=== PATIENT | female | born 1970 | race Caucasian/White ===

== ENCOUNTER → 2022-02-27 | Outpatient (CLI) | payer OTHER | END | disposition home or self-care (01) | LOC: RAH 13:58 → EDUNIT# 14:00 | PROVIDERS: ATTEND Internal Medicine Cardiovascular Disease | DX: Z13.6 Encounter for screening for cardiovascular disorders (principal) | CPT/HCPCS: 75571 ==

== ENCOUNTER 2023-12-31 15:43 | Emergency (ER) | payer BC, OTHER ==
[~2023-12-31] VITALS: Ht 170.2 cm; Wt 86.2 kg
[2023-12-31 16:18] LABS: BASOPHILS # (AUTO) 0.09 K/uL (0.00-0.20); BASOPHILS % (AUTO) 0.8 % (0.0-5.0); EOSINOPHILS # (AUTO) 0.22 K/uL (0.00-0.70); EOSINOPHILS % (AUTO) 2.1 % (0.0-8.0); HEMATOCRIT 38.7 % (36-48); IMMATURE GRANULOCYTE ABSOLUTE 0.03 K/uL (0-1); LYMPHOCYTES # (AUTO) 2.3 K/uL (1.0-4.8); MEAN CORPUSCULAR HGB CONC 33.6 g/dL (32.0-36.0); MEAN CORPUSCULAR VOLUME 92.4 fL (79-99); MONOCYTES # (AUTO) 1.2 K/uL (0.1-1.0); MONOCYTES % (AUTO) 11.6 % (3.0-13.0); NEUTROPHILS # (AUTO) 6.9 K/uL (1.8-7.7); NEUTROPHILS % (AUTO) 64.2 % (40.0-77.0); PLATELET COUNT (AUTO) 281 K/uL (130-400); RED BLOOD CELL COUNT(AUTO) 4.19 MIL/uL (4.00-5.50); RED CELL DISTRIBUTION WIDTH 13.4 % (11.0-15.5); WHITE BLOOD COUNT (AUTO) 10.7 K/uL (4.8-10.8)
[2023-12-31 16:29] LABS: ADD UA MICROSCOPIC YES; APPEARANCE,URINE CLEAR (CLEAR); BILIRUBIN,URINE NEGATIVE (NEGATIVE); COLOR,URINE YELLOW (YELLOW); GLUCOSE, URINE (UA) NEGATIVE (NEGATIVE); KETONES,URINE 10 mg/dL (NEGATIVE); LEUKOCYTE ESTERASE ,URINE 75 Leu/uL (NEGATIVE); NITRATE,URINE NEGATIVE (NEGATIVE); OCCULT BLOOD,URINE NEGATIVE (NEGATIVE); PROTEIN,URINE 10 mg/dL (NEGATIVE)
[2023-12-31 16:30] LABS: CREATININE 1.5 mg/dL (0.5-1.0); POTASSIUM 3.5 mmol/L (3.5-5.1)
[2023-12-31 16:31] LABS: BACTERIA,URINE FEW /HPF (None Seen); MUCUS,URINE RARE LPF (None Seen); SQUAMOUS EPITHELIAL CELL,UR RARE /HPF (0-2)
[2023-12-31 16:35] LABS: ALBUMIN 3.5 g/dL (3.5-5.0); BILIRUBIN,TOTAL 0.4 mg/dL (0.2-1.0); TOTAL PROTEIN, SERUM 7.8 g/dL (6.0-8.3)
[2023-12-31] MEDS: KETOROLAC 15MG/ML VIAL (15MG/ML) IV ONE (17:01)
[2023-12-31] MEDS: CEFTRIAXONE 1G VIAL IVPB ONE (17:01)
[2023-12-31] MEDS: FAMOTIDINE 20MG VIAL IV ONE (17:01)
[2023-12-31] MEDS: ONDANSETRON 4MG INJ IVP ONE (17:01)
[2023-12-31] MEDS: MORPHINE 2 MG SYG IVP ONE (18:38)
[2023-12-31 19:10] VITALS: BP 123/65; PULSE 81; RESP 16; O2SAT 98
[2023-12-31] MEDS ORDERED: FAMO-136 PO (19:10)
[2023-12-31] MEDS ORDERED: ONDA-243 PO (19:10)
[2023-12-31] MEDS ORDERED: KETO10TA2 PO (19:10)
== END 2023-12-31 19:24 | disposition home or self-care (01) ==
LOC: EDH 15:43
DX: R10.11 Right upper quadrant pain (principal); I10 Essential (primary) hypertension; E03.9 Hypothyroidism, unspecified; Z88.8 Allergy status to other drugs, medicaments and biological substances; Z90.49 Acquired absence of other specified parts of digestive tract
CPT/HCPCS: 99284; 74176; 96365; 96375; 96366; 80053; 83690; 85025; 87086 ×2; 87186; 81001; 36415; 93005; J3490; J2270; J0696; J2405; J1885

== ENCOUNTER 2025-01-11 23:01 | Emergency (ER) | payer BC ==
[~2025-01-11] VITALS: Ht 170.2 cm; Wt 84.8 kg
[~2025-01-11 23:01] MED LIST: FAMO-136 PO; KETO10TA2 PO; ONDA-243 PO
[2025-01-11] MEDS: LIDOCAINE/PRILOCAINE CREAM 5GM TUBE TP ONE (23:44)
[2025-01-12] MEDS: LIDOCAINE 1%-EPI 1:100,000 20 ML VIAL IJ ONE (00:05)
[2025-01-12 00:28] VITALS: BP 143/80; PULSE 74; RESP 16; TEMP 98; O2SAT 98
--- NOTE | 2025-01-12 00:31 | NUR ---
LACERATION REPAIR TO UPPER LIP
[2025-01-12] MEDS ORDERED: AMOX1TAB16 PO (00:51)
--- NOTE | 2025-01-12 00:53 | ERN ---
General Chief Complaint: Animal Bite Stated Complaint: C/O DOG BITE TO UPPER LIP Time Seen by MD: 23:05 Source: patient History of Present Illness Initial Comments Patient suffered a bite to her right upper lip from her pet dog. She says her dog has been vaccinated twice for rabies. Allergies: Coded Allergies: Iodinated Contrast Media (Unverified Allergy, Unknown, 12/31/23) Home Meds Active Scripts Amoxicillin/Potassium Clav (Amox Tr-K Clv 875-125 mg Tab) 875 Mg-125 Mg Tablet, 1 EACH PO BID for 5 Days, #10 TAB 0 Refills Prov:BRIDGETTE MOSS MD 01/12/25 Ondansetron (Ondansetron Odt) 4 Mg Tab.rapdis, 4 MG PO BID for 7 Days, #14 TAB Prov:NICOLETTE NASH 12/31/23 Ketorolac Tromethamine (Ketorolac Tromethamine) 10 Mg Tablet, 10 MG PO BID for 5 Days, #10 TAB Prov:NICOLETTE NASH 12/31/23 Famotidine (Pepcid) 20 Mg Tablet, 20 MG PO BID for 7 Days, #14 TAB Prov:NICOLETTE NASH 12/31/23 Past Medical History Past Medical History: Hypertension, Hypothyroid Past Surgical History: Appendectomy, Tonsillectomy ROS [employer] Systems Physical Exam Head/Face Trauma: Yes Face Comment There is a laceration 2 cm through the front of the patient's right upper lip. It does not involve the philtrum. It is not through and through. It appears also to have lost some tissue. Please see the procedure note for repair. MDM Superficial laceration avulsion to the patient's right upper lip. I will close it with some simple interrupted sutures I will give her a tetanus shot and prescribe a short course of antibiotics. ED Course Orders Procedure Category Date Status Time Lidocaine 1%-Epi PHA 01/11/25 Complete 1:100,000 (Lidocaine 23:30 Laceration Tray Set CPOE 01/11/25 Transmitted Up (Er) 23:23 Tetanus,Diphtheria PHA 01/11/25 Complete Tox [Adult] (Diphther 23:30 Lidocaine/Prilocaine PHA 01/11/25 Complete (Emla) 23:30 Current Medications Medications (Trade) Dose Ordered Sig/Nader Route PRN Reason Start Time Stop Time Status Last Admin Dose Admin Lidocaine/ Epinephrine (Lidocaine 1%-Epi 1:100,000) 20 ml ONCE ONCE IJ 01/11/25 23:30 01/11/25 23:31 DC 01/12/25 00:05 Lidocaine/ Prilocaine (Emla) 1 appl ONCE ONCE TP 01/11/25 23:30 01/11/25 23:31 DC 01/11/25 23:44 Tetanus/ Diphtheria Toxoids Adsorbed (DiphthERIA-teTANUS TOXOID [ADULT]/ DECAVAC) 0.5 ml ONCE ONCE IM 01/11/25 23:30 01/11/25 23:31 DC 01/11/25 23:50 Vital Signs Date Time Temp Pulse Resp B/P (MAP) Pulse Ox O2 Delivery O2 Flow Rate FiO2 01/12/25 00:28 98.1 74 16 143/80 98 Room Air* 0 21 Laceration/Wound Repair Laceration/Wound Repair : Wound Location: face Wound Length (cm): 1 Wound's Depth, Shape: superficial, irregular Wound Explored: clean Betadine Prep?: No Anesthesia: 1% Lidocaine, 0.5% Sensorcaine Wound Debrided: minimal Wound Repaired With: sutures Suture Size/Type: 5:0, 4:0 Number of Sutures: 5 Sterile Dressing Applied?: No DX & DISP Disposition: Discharge Departure Impression: Primary Impression: Dog bite of vermilion of upper lip Additional Impression: Open wound of lip due to dog bite Condition: Stable Scripts Amoxicillin/Potassium Clav (Amox Tr-K Clv 875-125 mg Tab) 875 Mg-125 Mg Tablet 1 EACH PO BID for 5 Days, #10 TAB 0 Refills Prov: BRIDGETTE MOSS MD 01/12/25 Referrals: MAYA CASTRO (PCP) BRIDGETTE MOSS MD Jan 12, 2025 00:53
== END 2025-01-12 01:11 | disposition home or self-care (01) ==
LOC: EDH 23:01
DX: S01.531A Puncture wound without foreign body of lip, initial encounter (principal); E03.9 Hypothyroidism, unspecified; I10 Essential (primary) hypertension; Z90.49 Acquired absence of other specified parts of digestive tract; Z90.89 Acquired absence of other organs; Z91.041 Radiographic dye allergy status; W54.0XXA Bitten by dog, initial encounter; Y93.89 Activity, other specified; Y92.89 Other specified places as the place of occurrence of the external cause; Y99.8 Other external cause status
CPT/HCPCS: 99284; 90714; 90471; 12011; J3490